=== PATIENT | male | born 1980 | race Caucasian/White ===

== ENCOUNTER → 2017-05-06 12:58 | Outpatient (CLI) | payer BC ==
[~2017-05-06 12:58] MED LIST: LISINOPRIL-HCTZ1 T11 PO
[2017-05-07 12:50] VITALS: BMI 62.6
== END | disposition home or self-care (01) ==
LOC: D.CT 12:58
DX: L03.314 Cellulitis of groin (principal)

== ENCOUNTER 2017-05-07 09:22 | Inpatient (IN) | payer BC ==
[~2017-05-07] VITALS: Ht 170.2 cm; Wt 181.4 kg
[2017-05-07] VITALS (9 sets, daily range): BP systolic 103–141; BP diastolic 53–75; Ht 170.2 cm; Wt 181.4 kg
--- NOTE | 2017-05-07 09:35 | NUR ---
RECIEVED PT TO FLOOR VIA WHEELCHAIR FROM DR. BASILIO OFFICE. PT ORIENTED TO ROOM, ASSESSMENT DONE PER FLOWSHEET. BED IN LOW POSITION AND CALL LIGHT WITHIN REACH. WILL CONTINUE TO MONITOR.
[2017-05-07] MEDS ORDERED: LISINOPRIL-HCTZ1 T11 PO (09:38)
--- NOTE | 2017-05-07 10:20 | NUR ---
22G IV STARTED TO THE RIGHT WRIST AT THIS TIME BY XAVIER NAPOLES RN. PT TOLERATED WELL, BED IN LOW POSITION AND CALL LIGHT WITHIN REACH. WILL CONTINUE TO [facility].
[2017-05-07 11:35] LABS: BASOPHILS 0.1 % (0-2); EOSINOPHILS 0.7 % (0-7); HEMOGLOBIN 12.2 g/dL (13.5-17.5); IMMATURE GRANULOCYTES 0.4 % (0-5); LYMPHOCYTES 10.1 % (15-50); MCH 27.7 pg (26.0-34.0); MCHC 32.1 g/dL (31.0-37.0); MCV 86.2 fL (80.0-100.0); MEAN PLATELET VOLUME 10.3 fL (7.4-10.4); MONOCYTES 8.1 % (2-11); NEUTROPHILS 80.6 % (40-80); PLATELET COUNT 196 10x3/uL (130-400); RBC 4.41 10x6/uL (4.20-6.10); RDW 14.5 % (11.5-14.5)
[2017-05-07 11:59] LABS: ALKALINE PHOSPHATASE 55 U/L (46-116); ALT (SGPT) 28 U/L (10-68); CALC OSMOLALITY 268 mosm/kg (275-300); CALCIUM 8.3 mg/dL (8.5-10.1); CARBON DIOXIDE 27.6 mmol/L (21.0-32.0); CHLORIDE - SERUM 100 mmol/L (98-107); GLUCOSE 115 mg/dL (74-106); POTASSIUM - SERUM 3.7 mmol/L (3.5-5.1); PROTEIN - SERUM 7.3 g/dL (6.4-8.2); SODIUM 135 mmol/L (136-145); UREA NITROGEN 8 mg/dL (7-18); eGFR NON AFRICAN AMERICAN 89 mL/min (90-120)
--- NOTE | 2017-05-07 12:00 | NUR ---
SPOKE WITH DR. VELÁSQUEZ AT THIS TIME, PT NPO UNTIL SEEN BY
--- NOTE | 2017-05-07 12:30 | NUR ---
PT TEMP AT 1210 WAS 102.5, SPOKE WITH DR. VINSON RECIEVED ORDERS FOR CAMPUS PRESIDENT, TYLENOL, AND JIMENEZ PLACEMENT. JIMENEZ PLACED AT THIS TIME USING STERILE TECHNIQUE, ENTIRE CONTENT OF KIT USED. PT TOLERATED WELL, BED IN LOW POSITION AND CALL LIGHT WITHIN REACH. WILL CONTINUE TO MONITOR.
[2017-05-07 13:57] LABS: APPEARANCE CLEAR (CLEAR); BILIRUBIN NEGATIVE (NEGATIVE); COLOR YELLOW (YELLOW); GLUCOSE NEGATIVE (NEGATIVE); KETONE NEGATIVE (NEGATIVE); LEUKOCYTE ESTERASE TRACE (NEGATIVE); NITRITE NEGATIVE (NEGATIVE); PROTEIN NEGATIVE (NEGATIVE); SPECIFIC GRAVITY 1.005 (1.005-1.020); UROBILINOGEN NORMAL (NORMAL)
[2017-05-07 13:58] LABS: BACTERIA FEW /hpf (NONE SEEN); RED CELLS - URINE 0-5 /hpf (0-5); WHITE CELLS - URINE 0-5 /hpf (0-5)
--- NOTE | 2017-05-07 14:07 | NUR ---
TEMP AT 1335 WAS RECORDED AT 101.6, CHECKED IT AT THIS TIME AND IT WAS 100.2. PT IS DIAPHORETIC, WILL CONTINUE TO MONITOR TEMP.
--- NOTE | 2017-05-07 15:15 | NUR ---
PT TAKEN FOR SURGERY AT THIS TIME.
--- NOTE | 2017-05-07 19:20 | NUR ---
REC'D PATIENT SITTING UP IN BED. DENIES PAIN AT THIS TIME. ALERT AND ORIENTED X4. NO DISTRESS NOTED. STATED THAT HIS BED WAS WET FROM HIM SWEATING. CHANGED OUT LINENS AND GOWN FOR HIM WITH ARIELLE KWAN. DENIED FURTHER NEEDS AT THIS TIME. WILL CONT TO MONITOR THROUGHTOUT THE NIGHT. WILL ADMIN PM MEDS PRESCRIBED. BED LOW, LOCKED, CALL LIGHT IN REACH.
[2017-05-08] VITALS: BP 111/55
--- NOTE | 2017-05-08 03:40 | NUR ---
PATIENT IS ALSEEP. NO DISTRESS NOTED. WILL CONT TO MONITOR THROUGHOUT THE NIGHT. BED LOW, LOCKED, CALL LIGHT IN REACH.
[2017-05-08 04:00] VITALS: BP 112/64
[2017-05-08 07:05] LABS: BASOPHILS 0 % (0-2); EOSINOPHILS 0 % (0-7); HEMATOCRIT 37.2 % (42.0-54.0); HEMOGLOBIN 11.9 g/dL (13.5-17.5); IMMATURE GRANULOCYTES 0.4 % (0-5); LYMPHOCYTES 5.7 % (15-50); MCH 27.5 pg (26.0-34.0); MCV 85.9 fL (80.0-100.0); MEAN PLATELET VOLUME 10.1 fL (7.4-10.4); MONOCYTES 4.4 % (2-11); NEUTROPHILS 89.5 % (40-80); PLATELET COUNT 197 10x3/uL (130-400); RBC 4.33 10x6/uL (4.20-6.10); RDW 14.4 % (11.5-14.5); WBC 13.5 10x3/uL (4.8-10.8)
[2017-05-08 07:18] LABS: HEMOGLOBIN A1C 5.7 % (4.8-6.0)
[2017-05-08 07:20] LABS: ALBUMIN 2.6 g/dL (3.4-5.0); ALKALINE PHOSPHATASE 75 U/L (46-116); CALCIUM 8.3 mg/dL (8.5-10.1); CARBON DIOXIDE 25.8 mmol/L (21.0-32.0); CHLORIDE - SERUM 102 mmol/L (98-107); POTASSIUM - SERUM 4.1 mmol/L (3.5-5.1); SODIUM 135 mmol/L (136-145); eGFR NON AFRICAN AMERICAN 89 mL/min (90-120)
[2017-05-08 07:24] LABS: ALT (SGPT) 62 U/L (10-68); CALC OSMOLALITY 273 mosm/kg (275-300); GLUCOSE 174 mg/dL (74-106); UREA NITROGEN 13 mg/dL (7-18)
--- NOTE | 2017-05-08 07:30 | NUR ---
RECIEVED PT DURING WALKING ROUNDS. PT RESTING COMFORTABLY IN BED WITH NO COMPLAINTS AT THIS TIME. DISCUSSED WITH PT THE POC, WILL FOLLOW UP AFTER PT IS SEEN BY . ASSESSMENT DONE PER FLOWSHEET. BED IN LOW POSITION AND CALL LIGHT WITHIN REACH. WILL CONTINUE TO MONTIOR.
--- NOTE | 2017-05-08 07:44 | OP ---
PATIENT NAME: JONATHAN CUEVAS MEDICAL RECORD: [id number] :76 LOCATION:D.MS [facility] ADMISSION DATE:05/07/17 SURGEON: ALVARO VINSON MD DATE OF OPERATION: 05/07/2017 SURGEON: Alvaro Vinson MD PREOPERATIVE DIAGNOSIS: Tatum gangrene. POSTOPERATIVE DIAGNOSIS: Tatum gangrene. PROCEDURE PERFORMED: Incision and drainage of Tatum gangrene in the right scrotum and mons pubis. ANESTHESIA: General. COMPLICATIONS: None. SPECIMENS: Anaerobic culture, aerobic culture, Gram stain and tissue culture. Case was grossly contaminated. ESTIMATED BLOOD LOSS: 30 cc. OPERATIVE COURSE: After consent was obtained, the patient was taken to the operating room and placed in supine position on the operating table. Next, general anesthesia was given via endotracheal intubation after a timeout was taken to confirm the correct patient and procedure. The patient was placed in stirrups. Perineum was prepped and draped in sterile fashion. There was a large opening along the right hemiscrotum with active purulent drainage. There is also a second opening in the midline of the mons pubis with active purulent drainage. An elliptical incision was made along the hemiscrotum approximately 8 cm in length and 2 cm in width. The tissue was excised with the 10 blade scalpel and it was sent for tissue culture. Blunt finger dissection was then performed of the perineum and hemiscrotum as well as the mons pubis. The wound was irrigated with saline and hydrogen peroxide was then packed with Kerlix soaked in Betadine and hydrogen peroxide. The second incision was made in the midline of the mons pubis with a 10 blade scalpel. The skin was opened for approximately 5 cm. Again, a large amount of purulent debris was debrided. After the wounds were opened, anaerobic and aerobic cultures were taken as well as Gram stain. The 2 areas infection did not communicate and there was no easily palpable tract between the two. The second wound was then packed again, it was irrigated with peroxide and saline, was packed with and peroxide with Kerlix. The wounds were dressed with gauze and tape. The patient was transferred to the PACU in stable condition. TRANSINT:[id number] Voice Confirmation ID: [id number] DOCUMENT ID: [id number] OPERATIVE REPORT [id number] JONATHAN CUEVAS JAMES J MD at 0744 CC: [id number] DICTATION DATE: 05/07/17 1611 DELICATE FABRICS PRESSER: 05/08/17 0057 ADM IN [place] [id number] [place] [id number]
--- NOTE | 2017-05-08 07:44 | CN ---
PATIENT NAME:JONATHAN CUEVAS MEDICAL RECORD: [id number] : 76 LOCATION:D.MS [facility] ADMIT DATE: 05/07/17 ACCOUNT: [id number] CONSULTING PHYSICIAN: ALVARO VINSON MD REFERRING PHYSICIAN: MARIA ISABEL BASILIO DO DATE OF CONSULTATION: 05/07/2017 Surgical Consultation SURGEON: Alvaro Vinson M.D. CHIEF COMPLAINT: Right groin pain. HISTORY OF PRESENT ILLNESS: This 36-year-old male who was admitted to the hospital this morning. He was seen by his primary care physician yesterday for acute onset of pain and swelling in the right groin and right hemiscrotum. The patient has had complaints of having high-grade fevers at home greater than 101. No nausea, no vomiting. He has no abdominal pain. No dysuria or hematuria. No history of previous soft tissue cellulitis or abscess in the past. The patient currently rates his pain as 8/10. The pain is in the right groin as well as the right scrotum. PAST MEDICAL HISTORY: Hypertension, venous stasis disease. PAST SURGICAL HISTORY: Left knee replacement, hernia repair, hip surgery, cholecystectomy, tonsillectomy, adenoidectomy. SOCIAL HISTORY: No history of alcohol use. He has no history of tobacco use. FAMILY HISTORY: Cardiovascular disease, cancer and diabetes in his parents. HOME MEDICATIONS: Lisinopril and hydrochlorothiazide. ALLERGIES: PENICILLIN, CEPHALEXIN. REVIEW OF SYSTEMS: A 12-point review of systems is obtained. Pertinent positive and negative as per the HPI. PHYSICAL EXAMINATION: VITAL SIGNS: Temperature 99.3, pulse 75, respirations 20, blood pressure is 141/62, pulse ox 97% on room air. GENERAL: This is a well-developed, well-nourished, morbidly obese male in moderate distress. EYES: Extraocular muscles intact. PSYCHIATRIC: Alert and oriented times 3. EAR, NOSE AND THROAT: Normal dentition. Mucous membranes are dry. CARDIOVASCULAR: Normal sinus rhythm. LUNGS: Clear to auscultation bilaterally, decreased breath sounds. ABDOMEN: Soft, nontender, and nondistended. EXTREMITIES: He is neurovascularly intact with 1+ lower extremity edema. SKIN: The patient has severe erythematous and indurated skin over the right groin and right scrotum. There is an actively draining purulence in the right hemiscrotum. It is markedly tender to palpation. The skin is blanching. It extends towards up to the mons pubis, all the way to the level of the right ASIS. CONSULT REPORT [id number] JONATHAN CUEVAS NEUROLOGIC: He has a GCS of 15 with no focal deficits. LABORATORY DATA: Pending. IMAGING: CT of the abdomen and pelvis images personally reviewed. The patient with abscess with cellulitis in the region of the mons pubis and right hemiscrotum. 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 PLAN: 1. IV fluid resuscitation. 2. Blood cultures. 3. Broad-spectrum IV antibiotics. 4. Whitehead placement. 5. Urology consultation. 6. Emergent incision and drainage Tatum's gangrene of the right hemiscrotum and perineum. Case was discussed with Dr. Gusman, urologist. TRANSINT:[id number] Voice Confirmation ID: [id number] DOCUMENT ID: [id number] ALVARO VINSON MD at 0744 CC: [id number] DICTATION DATE: 05/07/17 1218 EMPLOYEE BENEFITS INSURANCE AGENT: 05/07/17 2152 ADM IN [facility] [address] [place] [address]
--- NOTE | 2017-05-08 08:48 | NUR ---
DR. VISNON SAW PT AT THIS TIME AND REMOVED OUTER DRESSING FROM SURGICAL SITE, STATED HE WANTED THE PACKING TO STAY IN UNTIL TOMORROW. WILL CHANGE DRESSING PER ORDER.
[2017-05-08 09:01] VITALS: BP 115/55
[2017-05-08 13:02] VITALS: BP 100/46
--- NOTE | 2017-05-08 15:15 | NUR ---
LYING IN BED,FAMILY TO VISIT.DENIES NEEDS.CONTACT ISOLATION MAINTAINED
[2017-05-08 17:12] VITALS: BP 113/65
--- NOTE | 2017-05-08 17:24 | NUR ---
DENIES NEEDS.WITHOUT CHANGE.CONT PLAN OF CARE
[2017-05-08 20:00] VITALS: BP 127/66
[2017-05-09] VITALS: BP 126/62
[2017-05-09 04:00] VITALS: BP 122/57
[2017-05-09 05:19] LABS: BASOPHILS 0.2 % (0-2); EOSINOPHILS 0.3 % (0-7); HEMATOCRIT 33.7 % (42.0-54.0); HEMOGLOBIN 10.8 g/dL (13.5-17.5); IMMATURE GRANULOCYTES 0.3 % (0-5); LYMPHOCYTES 14.7 % (15-50); MCH 27.3 pg (26.0-34.0); MCV 85.3 fL (80.0-100.0); MEAN PLATELET VOLUME 10.6 fL (7.4-10.4); MONOCYTES 7.2 % (2-11); NEUTROPHILS 77.3 % (40-80); PLATELET COUNT 224 10x3/uL (130-400); RBC 3.95 10x6/uL (4.20-6.10); RDW 14.3 % (11.5-14.5); WBC 11.7 10x3/uL (4.8-10.8)
[2017-05-09 05:37] LABS: ALBUMIN 2.3 g/dL (3.4-5.0); ALKALINE PHOSPHATASE 62 U/L (46-116); ALT (SGPT) 51 U/L (10-68); BILIRUBIN - TOTAL 0.23 mg/dL (0.2-1.3); CALC OSMOLALITY 280 mosm/kg (275-300); CALCIUM 8.2 mg/dL (8.5-10.1); CARBON DIOXIDE 25.9 mmol/L (21.0-32.0); CHLORIDE - SERUM 106 mmol/L (98-107); CREATININE - SERUM 0.9 mg/dL (0.6-1.3); GLUCOSE 136 mg/dL (74-106); POTASSIUM - SERUM 3.9 mmol/L (3.5-5.1); PROTEIN - SERUM 6.4 g/dL (6.4-8.2); SODIUM 139 mmol/L (136-145); UREA NITROGEN 14 mg/dL (7-18); VANCOMYCIN - TROUGH 11.3 ug/mL (10.0-20.0); eGFR NON AFRICAN AMERICAN > 90 mL/min (90-120)
[2017-05-09 08:31] VITALS: BP 119/67
[2017-05-09 12:14] VITALS: BP 126/80
[2017-05-09 16:28] VITALS: BP 102/60
--- NOTE | 2017-05-09 17:20 | NUR ---
PATIENT ALERT IN BED. NO SIGNS OF DISTRESS NOTED. GUEST AT BEDSIDE. SIDE RAILS UP X2. BED IN LOW POSITION. CALL LIGHT IN REACH.
--- NOTE | 2017-05-09 19:30 | NUR ---
REC'D SITTING IN CHAIR IN ROOM. AWAKE AND ALERT. RESP EVEN AND UNLABORED WITH NO DISTRESS NOTED. CAN EXPRESS NEEDS AND WANTS. NO C/O NOTED OR VOICED. ASSESSMENT COMPLETED. C/L IN REACH AT BEDSIDE.
[2017-05-09 20:00] VITALS: BP 135/68
--- NOTE | 2017-05-10 02:00 | NUR ---
PT IN BED WITH NO DISTRESS. RESPIRATIONS EVEN AND UNLABORED. SIDE RAILS X 2. BED LOW. CALL LIGHT IN REACH.
[2017-05-10 04:00] VITALS: BP 124/74
[2017-05-10 05:05] LABS: BASOPHILS 0.1 % (0-2); EOSINOPHILS 2.3 % (0-7); HEMATOCRIT 33.4 % (42.0-54.0); HEMOGLOBIN 10.8 g/dL (13.5-17.5); IMMATURE GRANULOCYTES 0.6 % (0-5); LYMPHOCYTES 31.8 % (15-50); MCHC 32.3 g/dL (31.0-37.0); MCV 86.5 fL (80.0-100.0); MEAN PLATELET VOLUME 9.8 fL (7.4-10.4); MONOCYTES 7.6 % (2-11); NEUTROPHILS 57.6 % (40-80); PLATELET COUNT 201 10x3/uL (130-400); RBC 3.86 10x6/uL (4.20-6.10); RDW 14.8 % (11.5-14.5); WBC 7.8 10x3/uL (4.8-10.8)
[2017-05-10 05:31] LABS: ALBUMIN 2.4 g/dL (3.4-5.0); ALKALINE PHOSPHATASE 94 U/L (46-116); BILIRUBIN - TOTAL 0.25 mg/dL (0.2-1.3); CALC OSMOLALITY 283 mosm/kg (275-300); CALCIUM 7.9 mg/dL (8.5-10.1); CARBON DIOXIDE 27.2 mmol/L (21.0-32.0); CHLORIDE - SERUM 107 mmol/L (98-107); CREATININE - SERUM 0.8 mg/dL (0.6-1.3); GLUCOSE 98 mg/dL (74-106); POTASSIUM - SERUM 4.4 mmol/L (3.5-5.1); PROTEIN - SERUM 5.6 g/dL (6.4-8.2); SODIUM 142 mmol/L (136-145); UREA NITROGEN 14 mg/dL (7-18); eGFR NON AFRICAN AMERICAN > 90 mL/min (90-120)
[2017-05-10 05:32] LABS: ALT (SGPT) 72 U/L (10-68)
[2017-05-10 08:49] VITALS: BP 124/81
--- NOTE | 2017-05-10 09:48 | NUR ---
Patient Name: JONATHAN CUEVAS Admission Status: Elective Accout number: [id number] Admission Date: 05-07-2017 : 1980 Admission Diagnosis: Attending: SOWMYA Current LOS: 3 Anticipated DC Date: 05-13-2017 Planned Disposition: Home with Home Health Primary Insurance: [employer] TRUE BLUE PPO Discharge Planning Comments: CM MET WITH PATIENT REGARDING D/C NEEDS AND PLANS. PATIENT STATED HE LIVES WITH HIS (GABINO) AND CHILDREN. PATIENT STATED HIS WILL DRIVE HIM HOME AT DISCHARGE. PATIENT STATED THERE ARE 6 STEPS WITH RAILS TO ENTER HOME AND NO STEPS INSIDE. PATIENT STATED HE IS INDEPENDENT WITH HIS CARE AND HAS A BS COMMODE AT HOME AND HAS A BUILT IN SHOWER CHAIR. PATIENTS PCP IS DR. BASILIO AND PHARMACY IS [facility] AT [facility]. PATIENT SIGNED THE JORDAN FORM WITH [facility] (HAS HAD THEM BEFORE). CM WILL CONTINUE TO FOLLOW PATIENT WITH D/C NEEDS AND PLANS. PCP DR. [facility] [phone] GABINO () [phone] Spray Machine Operator: Gabby Bee Is the patient Alert and Oriented? Yes 0 * How many steps to enter\exit or inside your home? 6W/RAILS 0 * PCP DR. BASILIO 0 * Pharmacy [facility] 0 * Preadmission Environment Home with Family 0 * ADLs Independent 0 * Equipment Bedside Commode 0 * Other Equipment BUILT IN SHOWER CHAIR 0 * List name and contact numbers for known caregivers / representatives who currently or will assist patient after discharge: GABINO () [phone] * Community resources currently utilized None 0 * Additional services required to return to the preadmission environment? Yes 0 * Can the patient safely return to the preadmission environment? Yes 0 * Has this patient been hospitalized within the prior 30 days at any hospital? No 0 Grand Total: 0
[2017-05-10 12:05] VITALS: BP 139/77
[2017-05-10 15:57] VITALS: BP 107/58
[2017-05-10] MEDS ORDERED: CLEOCIN HCL150 MG PO (18:19)
[2017-05-10] MEDS ORDERED: NORCO 7.5/325 T1 TA1 PO (18:20)
[2017-05-10 20:03] VITALS: BP 126/60
--- NOTE | 2017-05-10 22:40 | NUR ---
REC'D PATIENT SITTING UP IN CHAIR. ALERT AND ORIENTED X4. REPORTED PAIN 4/10. NO DISTRESS NOTED. DENIED FURTHER NEEDS AT THIS TIME. WILL ADMIN PM MEDS PRESCRIBED. WILL CONT TO MONITOR THROUGHOUT NIGHT. INSTRUCTED TO CALL IF NEEDED ANYTHING, BED LOW, LOCKED CALL LIGHT IN REACH.
--- NOTE | 2017-05-11 02:00 | NUR ---
PT IN BED WITH NO DISTRESS. RESPIRATIONS EVEN AND UNLABORED. SIDE RAILS X 2. BED LOW. CALL LIGHT IN REACH.
--- NOTE | 2017-05-11 03:21 | NUR ---
PATIENT IS RESTING IN BED. NO DISTRESS NOTED. INSTRUCTED TO CALL IF NEEDED ANYTHING. INSTRUCTED TO CALL IF NEEDED ANYTHING. BED LOW, LOCKED CALL LIGHT IN REACH.
[2017-05-11 04:00] VITALS: BP 130/60
[2017-05-11 04:38] LABS: BASOPHILS 0.2 % (0-2); EOSINOPHILS 4.2 % (0-7); HEMATOCRIT 34.4 % (42.0-54.0); IMMATURE GRANULOCYTES 1.2 % (0-5); LYMPHOCYTES 24.2 % (15-50); MCH 27.5 pg (26.0-34.0); MEAN PLATELET VOLUME 9.7 fL (7.4-10.4); MONOCYTES 7.9 % (2-11); NEUTROPHILS 62.3 % (40-80); PLATELET COUNT 248 10x3/uL (130-400); RDW 14.8 % (11.5-14.5); WBC 9.8 10x3/uL (4.8-10.8)
[2017-05-11 04:54] LABS: ALBUMIN 2.5 g/dL (3.4-5.0); ALKALINE PHOSPHATASE 110 U/L (46-116); ALT (SGPT) 76 U/L (10-68); BILIRUBIN - TOTAL 0.33 mg/dL (0.2-1.3); CALC OSMOLALITY 281 mosm/kg (275-300); CALCIUM 8.4 mg/dL (8.5-10.1); CARBON DIOXIDE 29.1 mmol/L (21.0-32.0); CHLORIDE - SERUM 105 mmol/L (98-107); CREATININE - SERUM 0.7 mg/dL (0.6-1.3); GLUCOSE 107 mg/dL (74-106); POTASSIUM - SERUM 4.4 mmol/L (3.5-5.1); PROTEIN - SERUM 5.7 g/dL (6.4-8.2); SODIUM 142 mmol/L (136-145); eGFR NON AFRICAN AMERICAN > 90 mL/min (90-120)
[2017-05-11 04:55] LABS: UREA NITROGEN 10 mg/dL (7-18)
[2017-05-11 08:25] VITALS: BP 129/73
[2017-05-11] MEDS ORDERED: ATIVAN1 MG PO (09:06)
--- NOTE | 2017-05-11 09:06 | NUR ---
CM REASSESSMENT NOTE: PATIENT IS DISCHARGING HOME TODAY-SON IS DRIVING. PATIENT WILL HAVE [facility] FOR DAILY DRESSING CHANGES. PATIENT HAD NO OTHER NEEDS FOR DISCHARGE.
--- NOTE | 2017-05-11 09:15 | NUR ---
PT AOX4 RESP EVEN AND NONLABORED PT HERE FOR WOUND CARE FOR THIS VISIT IV TO LEFT FOREARM PATENT AND INTACT PT DENIES NEEDS AT THIS TIME PT SITTING IN CHAIR WITH CALL LIGHT WITHIN REACH WILL CONTINUE TO MONITOR
[2017-05-11 11:15] LABS: APPEARANCE CLOUDY (CLEAR); BILIRUBIN NEGATIVE (NEGATIVE); COLOR YELLOW (YELLOW); GLUCOSE NEGATIVE (NEGATIVE); KETONE NEGATIVE (NEGATIVE); LEUKOCYTE ESTERASE NEGATIVE (NEGATIVE); NITRITE NEGATIVE (NEGATIVE); PROTEIN NEGATIVE (NEGATIVE); SPECIFIC GRAVITY 1.005 (1.005-1.020); UROBILINOGEN NORMAL (NORMAL)
[2017-05-11 11:18] LABS: BACTERIA FEW /hpf (NONE SEEN); EPITHELIAL CELLS OCC /hpf (0-5); RED CELLS - URINE >50 /hpf (0-5); WHITE CELLS - URINE OCC /hpf (0-5)
--- NOTE | 2017-05-11 11:30 | NUR ---
PT DRESSING CHANGED PER ORDER PACKING NOTED TO RIGHT SIDE SCROTUM REMOVED AND REPLACED PER ORDER PT TOLERATED WELL WITH ATIVAN AND PAIN MEDS ON BOARD.
[2017-05-11] MEDS ORDERED: LASIX40 MG PO (12:52)
--- NOTE | 2017-05-11 13:30 | NUR ---
ORDERED LASIX CALLED TO [facility]. JENIFER, PHARMACIST RECEIVED ORDER.
--- NOTE | 2017-05-11 17:07 | NUR ---
PT DISCHARGED PER ORDER WITH FAMILY AT SIDE.
== END 2017-05-11 17:08 | disposition home health service (06) | DRG 580 ==
LOC: D.MS 09:22
PROVIDERS: Student in an Organized Health Care Education/Training Program; ADMIT Family Medicine
PROC: 0H99XZZ Drainage of Perineum Skin, External Approach (ICD-10-PCS; 2017-05-07)
PROC: 0H9AXZZ Drainage of Inguinal Skin, External Approach (ICD-10-PCS; 2017-05-07)
PROC: 0T9B70Z Drainage of Bladder with Drainage Device, Via Natural or Artificial Opening (ICD-10-PCS; principal; 2017-05-08)
DX: L03.314 Cellulitis of groin (principal); Z68.44 Body mass index [BMI] 60.0-69.9, adult; N49.3 Fournier gangrene; B95.62 Methicillin resistant Staphylococcus aureus infection as the cause of diseases classified elsewhere; E66.01 Morbid (severe) obesity due to excess calories; I10 Essential (primary) hypertension; Z88.1 Allergy status to other antibiotic agents; I83.028 Varicose veins of left lower extremity with ulcer other part of lower leg

== ENCOUNTER → 2018-05-07 21:14 | Outpatient (CLI) | payer BC ==
[2017-05-07 12:50] VITALS: BMI 62.6
[~2018-05-07 21:14] MED LIST changes: +ATIVAN1 MG PO; +CLEOCIN HCL150 MG PO; +LASIX40 MG PO; +NORCO 7.5/325 T1 TA1 PO
== END | disposition home or self-care (01) ==
LOC: D.LABREF 21:14
DX: T14.8XXA Other injury of unspecified body region, initial encounter (principal); X58.XXXA Exposure to other specified factors, initial encounter

== ENCOUNTER 2018-09-08 14:33 | Inpatient (IN) | payer BC ==
[~2018-09-08] VITALS: Ht 170.2 cm; Wt 185.5 kg
--- NOTE | ~2018-09-08 | MORECARE ---
CASE MANAGEMENT DISCHARGE SUMMARY PATIENT: JONATHAN CUEVAS LIZBETH UNIT: [id number] ADM DATE: 09/08/18 AGE: 37 : 78 SEX: M ROOM/BED: D.2132 AUTHOR: QIAN OLSON PHYSICIAN: REFERRING PHYSICIAN: MARIA ISABEL BASILIO DO DATE OF SERVICE: 09/12/18 Discharge Plan Patient Name: JONATHAN CUEVAS [facility] [facility] 1980 Planned Disposition: Home Anticipated Discharge Date: 09/10/18 Discharge Date: 09/10/2018 Expected LOS: 2 Initial Reviewer: [email or web address] Initial Review Date: 09/12/2018 Generated: 09/12/18 9:58 am Patient Name: JONATHAN CUEVAS Page [id number] at 0858 All edits/amendments must be made on the electronic document DICTATION DATE: 09/12/1858 CHILDREN'S NURSERY ASSISTANT: DORA 09/12/1858 RPT#: [id number] DC DATE:09/10/18 STATUS: DIS IN [facility] [address] [facility] [place] [address] END OF REPORT
[2018-09-08] MEDS ORDERED: HYDROCODON-ACE1 EAC7 PO (15:25)
[2018-09-08] MEDS ORDERED: ALDACTONE25 MG PO (15:28)
[2018-09-08] MEDS ORDERED: ENTRESTO 97 MG1 EACH PO (15:28)
[2018-09-08] MEDS ORDERED: COUMADIN10 MG PO ×2 (15:29→15:30)
[2018-09-08 15:30] LABS: BASOPHILS 0.1 % (0-2); EOSINOPHILS 2.2 % (0-7); HEMATOCRIT 37.2 % (42.0-54.0); HEMOGLOBIN 12.5 g/dL (13.5-17.5); IMMATURE GRANULOCYTES 0.3 % (0-5); LYMPHOCYTES 36.1 % (15-50); MCH 26.7 pg (26.0-34.0); MCHC 33.6 g/dL (31.0-37.0); MCV 79.5 fL (80.0-100.0); MEAN PLATELET VOLUME 10.5 fL (7.4-10.4); MONOCYTES 5.1 % (2-11); NEUTROPHILS 56.2 % (40-80); PLATELET COUNT 225 10x3/uL (130-400); RBC 4.68 10x6/uL (4.20-6.10); RDW 15.4 % (11.5-14.5); WBC 8.8 10x3/uL (4.8-10.8)
[2018-09-08] MEDS ORDERED: METOPROLOL TART50 MG PO (15:31)
[2018-09-08] MEDS ORDERED: BUMEX2 MG PO (15:31)
[2018-09-08] MEDS ORDERED: LANOXIN125 MCG PO (15:32)
[2018-09-08] MEDS ORDERED: BASAGLAR K100 UNIT/1 SC (15:40)
[2018-09-08 15:47] VITALS: BP 130/59; BMI 64.2
[2018-09-08 16:07] LABS: ALBUMIN 3.5 g/dL (3.4-5.0); ALKALINE PHOSPHATASE 91 U/L (46-116); ALT (SGPT) 36 U/L (10-68); BILIRUBIN - TOTAL 0.41 mg/dL (0.2-1.3); CALCIUM 9.1 mg/dL (8.5-10.1); CARBON DIOXIDE 28.4 mmol/L (21.0-32.0); CHLORIDE - SERUM 93 mmol/L (98-107); CREATININE - SERUM 1.1 mg/dL (0.6-1.3); POTASSIUM - SERUM 3.9 mmol/L (3.5-5.1); PROTEIN - SERUM 6.8 g/dL (6.4-8.2); SODIUM 130 mmol/L (136-145); UREA NITROGEN 18 mg/dL (7-18); eGFR NON AFRICAN AMERICAN 79 mL/min (90-120)
[2018-09-08 16:17] VITALS: BP 130/59
[2018-09-08 16:17] LABS: CALC OSMOLALITY 287 mosm/kg (275-300); GLUCOSE 541 mg/dL (74-106)
[2018-09-08 22:25] VITALS: BP 120/59
[2018-09-09 02:17] VITALS: BP 120/58
[2018-09-09 04:38] LABS: APPEARANCE CLEAR (CLEAR); COLOR YELLOW (YELLOW)
[2018-09-09 04:39] LABS: BILIRUBIN NEGATIVE (NEGATIVE); GLUCOSE 1000 mg/dL (NEGATIVE); KETONE NEGATIVE (NEGATIVE); NITRITE NEGATIVE (NEGATIVE); PROTEIN NEGATIVE (NEGATIVE); UROBILINOGEN NORMAL (NORMAL)
[2018-09-09 05:59] VITALS: BP 107/50
[2018-09-09 06:10] LABS: BASOPHILS 0.2 % (0-2); EOSINOPHILS 2.8 % (0-7); HEMOGLOBIN 12.2 g/dL (13.5-17.5); IMMATURE GRANULOCYTES 0.5 % (0-5); MCH 26.5 pg (26.0-34.0); MCV 80.3 fL (80.0-100.0); MEAN PLATELET VOLUME 10.7 fL (7.4-10.4); MONOCYTES 4.9 % (2-11); NEUTROPHILS 62.6 % (40-80); PLATELET COUNT 186 10x3/uL (130-400); RBC 4.61 10x6/uL (4.20-6.10); RDW 15.5 % (11.5-14.5)
[2018-09-09 06:23] LABS: WBC 6.4 10x3/uL (4.8-10.8)
[2018-09-09 06:27] LABS: ALKALINE PHOSPHATASE 75 U/L (46-116); ALT (SGPT) 77 U/L (10-68); BILIRUBIN - TOTAL 0.56 mg/dL (0.2-1.3); CALC OSMOLALITY 282 mosm/kg (275-300); CALCIUM 8.8 mg/dL (8.5-10.1); CARBON DIOXIDE 28.8 mmol/L (21.0-32.0); CHLORIDE - SERUM 98 mmol/L (98-107); CREATININE - SERUM 0.8 mg/dL (0.6-1.3); GLUCOSE 339 mg/dL (74-106); POTASSIUM - SERUM 3.8 mmol/L (3.5-5.1); PROTEIN - SERUM 6.6 g/dL (6.4-8.2); SODIUM 135 mmol/L (136-145); UREA NITROGEN 13 mg/dL (7-18); eGFR NON AFRICAN AMERICAN > 90 mL/min (90-120)
[2018-09-09 08:14] VITALS: BP 132/58
[2018-09-09 10:40] LABS: INR 2.4 (0.85-1.17); PROTIME 25.5 SECONDS (11.6-15.0)
[2018-09-09 12:06] VITALS: BP 126/78
[2018-09-09 14:19] VITALS: Ht 170.2 cm; Wt 185.5 kg
[2018-09-09 16:03] VITALS: BP 123/53
[2018-09-09 21:58] VITALS: BP 104/40
[2018-09-10 01:06] VITALS: BP 103/40
[2018-09-10 04:00] VITALS: BP 129/67
[2018-09-10 05:10] LABS: BASOPHILS 0.1 % (0-2); EOSINOPHILS 3.6 % (0-7); HEMATOCRIT 37.9 % (42.0-54.0); HEMOGLOBIN 12.7 g/dL (13.5-17.5); IMMATURE GRANULOCYTES 0.3 % (0-5); LYMPHOCYTES 33.6 % (15-50); MCHC 33.5 g/dL (31.0-37.0); MCV 80.6 fL (80.0-100.0); MONOCYTES 6.1 % (2-11); NEUTROPHILS 56.3 % (40-80); PLATELET COUNT 200 10x3/uL (130-400); RDW 15.5 % (11.5-14.5); WBC 7.2 10x3/uL (4.8-10.8)
[2018-09-10 05:28] LABS: ALKALINE PHOSPHATASE 81 U/L (46-116); BILIRUBIN - TOTAL 0.65 mg/dL (0.2-1.3); CALCIUM 8.8 mg/dL (8.5-10.1); CARBON DIOXIDE 30.1 mmol/L (21.0-32.0); CHLORIDE - SERUM 100 mmol/L (98-107); CREATININE - SERUM 0.8 mg/dL (0.6-1.3); PROTEIN - SERUM 6.7 g/dL (6.4-8.2); SODIUM 137 mmol/L (136-145); UREA NITROGEN 10 mg/dL (7-18); eGFR NON AFRICAN AMERICAN > 90 mL/min (90-120)
[2018-09-10 05:29] LABS: ALT (SGPT) 130 U/L (10-68); CALC OSMOLALITY 278 mosm/kg (275-300); GLUCOSE 201 mg/dL (74-106); POTASSIUM - SERUM 3.1 mmol/L (3.5-5.1)
[2018-09-10 08:00] VITALS: BP 127/68
[2018-09-10] MEDS ORDERED: BASAGLAR K100 UNIT/1 SC (10:08)
[2018-09-10] MEDS ORDERED: NORCO 10-325 TA1 TAB PO (10:11)
[2018-09-10] MEDS ORDERED: HUMALOG 30100 UNITS/ SC (10:11)
[2018-09-10 12:52] VITALS: BP 119/63
== END 2018-09-10 16:13 | disposition home or self-care (01) | DRG 638 ==
LOC: D.SDCHOLD 14:33 → D.M2 14:33
PROVIDERS: Family Medicine
DX: E11.65 Type 2 diabetes mellitus with hyperglycemia (principal); Z68.44 Body mass index [BMI] 60.0-69.9, adult; I11.0 Hypertensive heart disease with heart failure; I50.9 Heart failure, unspecified; E66.01 Morbid (severe) obesity due to excess calories; Z95.2 Presence of prosthetic heart valve; Z87.891 Personal history of nicotine dependence

== ENCOUNTER 2018-12-27 06:20 | Day surgery (SDC) | payer BC ==
[2018-12-26 09:33] LABS: BASOPHILS 0.1 % (0-2); CALC OSMOLALITY 284 mosm/kg (275-300); CALCIUM 8.7 mg/dL (8.5-10.1); CHLORIDE - SERUM 101 mmol/L (98-107); CREATININE - SERUM 0.8 mg/dL (0.6-1.3); EOSINOPHILS 1.4 % (0-7); GLUCOSE 215 mg/dL (74-106); HEMATOCRIT 41.2 % (42.0-54.0); HEMOGLOBIN 13.8 g/dL (13.5-17.5); IMMATURE GRANULOCYTES 0.5 % (0-5); MCHC 33.5 g/dL (31.0-37.0); MCV 83.6 fL (80.0-100.0); MEAN PLATELET VOLUME 10.5 fL (7.4-10.4); MONOCYTES 5.8 % (2-11); NEUTROPHILS 67.2 % (40-80); POTASSIUM - SERUM 3.5 mmol/L (3.5-5.1); RBC 4.93 10x6/uL (4.20-6.10); RDW 13.9 % (11.5-14.5); SODIUM 141 mmol/L (136-145); UREA NITROGEN 8 mg/dL (7-18); WBC 10.3 10x3/uL (4.8-10.8); eGFR NON AFRICAN AMERICAN > 90 mL/min (90-120)
[2018-12-26 09:43] LABS: APTT 59.8 SECONDS (22.8-39.4); INR 2.19 (0.85-1.17); PROTIME 23.7 SECONDS (11.6-15.0)
[2018-12-26 10:20] LABS: PLATELET COUNT 254 10x3/uL (130-400)
[~2018-12-27] VITALS: Ht 170.2 cm; Wt 173.3 kg
[~2018-12-27 06:20] MED LIST changes: +ALDACTONE25 MG PO; +BASAGLAR K100 UNIT/1 SC; +BUMEX2 MG PO; +COUMADIN10 MG PO; +ENTRESTO 97 MG1 EACH PO; +HUMALOG 30100 UNITS/ SC; +HYDROCODON-ACE1 EAC7 PO; +LANOXIN125 MCG PO; +METOPROLOL TART50 MG PO; +NORCO 10-325 TA1 TAB PO
[2018-12-27 06:42] VITALS: BP 119/50; Ht 170.2 cm; Wt 173.3 kg
--- NOTE | 2018-12-27 14:42 | OP ---
PATIENT NAME: JONATHAN CUEVAS MEDICAL RECORD: [id number] :[birth year] LOCATION:JAVI ADMISSION DATE: SURGEON: LIZBETH VELÁSQUEZ MD DATE OF OPERATION: 12/27/2018 SURGEON: Lizbeth Velásquez MD ANESTHESIA: General anesthesia by Mumtaz De Dios CRNA DIAGNOSIS: Buried penis. PROCEDURE: Examination under anesthesia. FINDINGS: The patient had previous adequate circumcision. Buried penis. BLOOD LOSS: None. CLINICAL HISTORY: This is a 38-year-old male with a history of diabetes mellitus type 2 since August of 2018. He was complaining of recurrent infections of the head of the penis. He was referred by Dr. Nam. He had had a circumcision in childhood, but a lot of the foreskin he claims was left behind. He was complaining of difficulty with pain in the glans penis and tears in the foreskin. He felt that there was a tight band which was making it hard to pull the foreskin back in order to expose the glans penis. He was started on antibiotics and antifungals to treat the infection. Besides the diabetes, he has had cancer of the right kidney, treated with cryotherapy. He also had an aortic valve replacement in March of 2018. He was born with a bicuspid aortic valve. He currently has a mechanical heart valve and he is on warfarin. His web applications programmer allowed us to hold his warfarin for 3 days prior to the surgery. He wanted to have an elective circumcision done today. HE IS ALLERGIC TO PENICILLIN AND CEPHALEXIN. He was given Levaquin IV on-call to the OR. DESCRIPTION OF PROCEDURE: The patient was given induction of general anesthesia. He was then shaved and prepped in supine position. The patient is morbidly obese and he has a very large abdominal pannus, which buries the penis. When we finally uncovered the penis and I put a 2-0 nylon suture through the glans penis and put it under direct traction to obtain full erectile length, it was found that the circumcised skin was actually adequate for full penile erection. There was no redundant skin left to be excised. If we cut more skin off, then he would have a tethered erection. At this point, it was decided to abandon the procedure. The suture was removed from the glans penis, and with a little bit of manual pressure, the bleeding from the needle stick stopped. The patient was awakened and brought to the recovery room. TRANSINT:[id number] Voice Confirmation ID: [id number] DOCUMENT ID: [id number] LIZBETH VELÁSUQEZ MD at 1442 CC: [id number] DICTATION DATE: 12/27/18 1016 TRAFFIC ENUMERATOR: 12/27/18 1105 [facility] [address] [place] [address]
== END 2018-12-27 12:15 | disposition home or self-care (01) ==
LOC: D.OPS 06:20
PROVIDERS: Anesthesiology
DX: N48.83 Acquired buried penis (principal); E11.9 Type 2 diabetes mellitus without complications; Z79.01 Long term (current) use of anticoagulants; Z95.2 Presence of prosthetic heart valve; Z88.1 Allergy status to other antibiotic agents; Z88.0 Allergy status to penicillin; E66.01 Morbid (severe) obesity due to excess calories; Z01.812 Encounter for preprocedural laboratory examination

== ENCOUNTER 2019-09-28 18:32 | Observation (INO) | payer BC ==
[2019-09-28] VITALS (9 sets, daily range): BP systolic 106–127; BP diastolic 45–70; BMI 573.5
[~2019-09-28] VITALS: Ht 170.2 cm; Wt 1659.5 kg
[2019-09-28 19:07] LABS: BASOPHILS 0 % (0-2); EOSINOPHILS 1.1 % (0-7); HEMATOCRIT 36.4 % (42.0-54.0); HEMOGLOBIN 11.9 g/dL (13.5-17.5); IMMATURE GRANULOCYTES 0.4 % (0-5); MCH 28.3 pg (26.0-34.0); MCHC 32.7 g/dL (31.0-37.0); MCV 86.7 fL (80.0-100.0); MEAN PLATELET VOLUME 9.3 fL (7.4-10.4); MONOCYTES 7.6 % (2-11); NEUTROPHILS 61.9 % (40-80); PLATELET COUNT 209 10x3/uL (130-400); RDW 14.3 % (11.5-14.5); WBC 4.7 10x3/uL (4.8-10.8)
[2019-09-28 19:14] LABS: CALC OSMOLALITY 275 mosm/kg (275-300); CALCIUM 8.1 mg/dL (8.5-10.1); CARBON DIOXIDE 27.8 mmol/L (21.0-32.0); CHLORIDE - SERUM 100 mmol/L (98-107); GLUCOSE 192 mg/dL (74-106); SODIUM 136 mmol/L (136-145); UREA NITROGEN 9 mg/dL (7-18); eGFR NON AFRICAN AMERICAN 88 mL/min (90-120)
[2019-09-28 19:15] LABS: INR 1.41 (0.85-1.17); PROTIME 16.7 SECONDS (11.6-15.0)
[2019-09-28 19:16] LABS: APTT 45.8 SECONDS (22.8-39.4)
--- NOTE | 2019-09-28 19:22 | NUR ---
PT RECIEVED ONE SL NITRO WITH NO PAIN RELIEF.
--- NOTE | 2019-09-28 19:28 | NUR ---
PT RECIEVED SECOND SL NITRO WITH NO RELIEF. EDP OSORIO AND NINFA NOTIFIED. OTHER ORDERS ENTERED BY PHYSICIAN.
[2019-09-28 19:34] LABS: ALBUMIN 2.9 g/dL (3.4-5.0); ALKALINE PHOSPHATASE 71 U/L (46-116); ALT (SGPT) 30 U/L (10-68); BILIRUBIN - TOTAL 0.52 mg/dL (0.2-1.3); CKMB 0.3 U/L (0.0-3.6); CREATINE KINASE 368 UL (21-232); MAGNESIUM - SERUM 1.5 mg/dL (1.8-2.4); TROPONIN-I < 0.017 ng/mL (0.000-0.060)
--- NOTE | 2019-09-28 20:50 | NUR ---
PT DIAPHORETIC. EDP NINFA AND OSORIO NOTIFIED. PT PROVIDED WITH WET WASHCLOTHS AND BED LINENS CHANGED. PT DENIES FURTHER REQUESTS AT THIS TIME. WILL CONTINUE TO MONITOR.
--- NOTE | 2019-09-28 21:30 | NUR ---
FORMULA ROOM WORKER FROM [employer] HERE TO INTERROGATE PACEMAKER.
--- NOTE | 2019-09-28 22:15 | NUR ---
PT IN BED RESTING AT THIS TIME. PT HAS NO COMPLAINTS AT THIS TIME. WILL CONTINUE TO MONITOR.
[2019-09-28 22:32] LABS: CKMB 0.3 U/L (0.0-3.6); CREATINE KINASE 352 UL (21-232)
[2019-09-28 22:36] LABS: TROPONIN-I < 0.017 ng/mL (0.000-0.060)
--- NOTE | 2019-09-29 00:45 | NUR ---
RECIEVED REPORT FROM MIKE SO, PT ARRIVED BY WHEELCHAIR. INITIAL VSS, PT AAOX3, NO S/S OF DISTRESS. PT. C/O OF PAIN IV 4MG MORPHINE GIVEN AT THIS TIME. PT PLACED ON TELE. 78 PACED. PT ALSO PLACED ON NPO PER PROVIDERS ORDER. PT DENIES ANY FURTHER NEEDS AT THIS TIME. WILL CPOC.
[2019-09-29 04:00] VITALS: BP 103/56
[2019-09-29 05:26] LABS: HEMATOCRIT 35.9 % (42.0-54.0); HEMOGLOBIN 11.7 g/dL (13.5-17.5); MCH 28.5 pg (26.0-34.0); MCHC 32.6 g/dL (31.0-37.0); MCV 87.3 fL (80.0-100.0); MEAN PLATELET VOLUME 10.2 fL (7.4-10.4); PLATELET COUNT 209 10x3/uL (130-400); RBC 4.11 10x6/uL (4.20-6.10); RDW 14.4 % (11.5-14.5); WBC 3.7 10x3/uL (4.8-10.8)
--- NOTE | 2019-09-29 06:07 | NUR ---
ASSESSMENT DONE. DENIES NEEDS
[2019-09-29 06:16] LABS: EOSINOPHILS 3 % (0-7); LYMPHOCYTES 37 % (15-50); MONOCYTES 10 % (2-11); NEUTROPHILS 38 % (40-80)
[2019-09-29 06:17] LABS: PLATELET ESTIMATE NORMAL
[2019-09-29 06:32] LABS: CARBON DIOXIDE 29.4 mmol/L (21.0-32.0); CHLORIDE - SERUM 103 mmol/L (98-107); CKMB 0.5 U/L (0.0-3.6); CREATINE KINASE 332 UL (21-232); POTASSIUM - SERUM 3.3 mmol/L (3.5-5.1); SODIUM 138 mmol/L (136-145); TROPONIN-I < 0.017 ng/mL (0.000-0.060); UREA NITROGEN 8 mg/dL (7-18)
[2019-09-29 06:45] LABS: CALC OSMOLALITY 275 mosm/kg (275-300); CREATININE - SERUM 0.6 mg/dL (0.6-1.3); GLUCOSE 136 mg/dL (74-106); eGFR NON AFRICAN AMERICAN > 90 mL/min (90-120)
[2019-09-29 07:29] VITALS: BP 115/44
--- NOTE | 2019-09-29 08:08 | NUR ---
I have reviewed this patient and I concur with the Shift Assessment completed by the Licensed Practical Nurse today this shift.
[2019-09-29 09:42] VITALS: Ht 170.2 cm; Wt 1659.5 kg
--- NOTE | 2019-09-29 10:43 | NUR ---
UPON ADMIT, PATIENT HAS NOT HAD A FLU SHOT. WHEN QUESTIONED IF HE NEEDED ONE, HE REFUSED.
--- NOTE | 2019-09-29 11:44 | NUR ---
DC GIVEN TO PT, DC HOME PERSONAL CAR
--- NOTE | 2019-10-04 14:07 | EC ---
PATIENT:JONATHAN CUEVAS DATE OF SERVICE: 09/28/19 SEX: M MEDICAL RECORD: [id number] DATE OF : [birth year] LOCATION:D. D.212 AGE OF PATIENT: 38 ADMISSION DATE: 09/28/19 REFERRING PHYSICIAN: INTERPRETING PHYSICIAN: OLI NÚÑEZ MD ECHOCARDIOGRAM REPORT ECHO CHARGES 4 ECHO COMPLETE Date: 09/29/19 CLINICAL DIAGNOSIS: ICD,POSSIBLE DISLODGEMENT OF LEAD/PERFORMATION, HX AVR ECHOCARDIOGRAPHIC MEASUREMENTS (adult normal given) AC root (d.<3.7cm) 3.4 cm LV Septum d (<1.2 cm> 1.1 cm Valve Excursion 1.9 cm LV Septum (systole) 1.5 cm Left Atria (s.<4.0cm> 4.3 cm LVPW d(<1.2cm) 1.5 cm RV (d.<2.3cm) 4.9 cm LVPW (sytole) 1.7 cm LV diastole(<5.6CM) 6.5 cm MV E-F(>70mm/sec) cm LV systole 4.6 cm LVOT Diameter 2.3 cm MV exc.(>10mm) 1.9 cm Est.ejection fraction (50-75%) % DOPPLER: LVIT cm/sec A 49.0 cm/sec E 92.0 cm/sec LA 111 cm/sec RVSP 23 mmHg LVOT 167 cm/sec AOP1/2T m/s Asc. Ao cm/sec RVOT cm/sec RA cm/sec PA cm/sec AV Gradient Peak 11.18mmHg AV Mean 6.11 mmHg AV Area 2.6 cm MV Gradient Peak 4.37 mmHg MV Mean 1.54 mmHg MV Area cm COMMENTS: Chemistry Technical Officer: 2 DIANA BARAKAT Help Desk Administrator: 1 Dr. Núñez TAPE# PACS Pericardial Effusion N DATE OF SERVICE: FINDINGS: 1. Left ventricular chamber size is mildly dilated. Left ventricular systolic function is preserved at 50%. 2. Left atrium is enlarged at 4.3 cm. Right atrium and right ventricular chamber sizes are as well mildly dilated. 3. Valvular structures: Aortic valve is replaced with mechanical prosthesis with normal structure and function in this position. The remaining valvular structures have normal structure and motion. ECHOCARDIOGRAM REPORT [id number] JONATHAN CUEVAS 4. Doppler interrogation reveals no significant valvular insufficiency or stenosis. Pulmonary systolic pressure is normal, estimated at 19 mmHg. 5. No evidence of pericardial effusion or left ventricular thrombus. TRANSINT:[id number] Voice Confirmation ID: [id number] DOCUMENT ID: [id number] OLI NÚÑEZ MD at 1407 CC: [id number] DICTATION DATE: 09/29/19 1519 INSPECTION MACHINE TENDER: 09/29/19 1716 DIS IN 09/29/19 [place] [id number] [place] [id number]
--- NOTE | 2019-10-04 14:07 | HP ---
PATIENT: JONATHAN CUEVAS MEDICAL RECORD: [id number] ACCOUNT: [id number] LOCATION:D. D.2123 : 76 ADMISSION DATE: 09/28/19 PCP: MARIA ISABEL BASILIO DO HISTORY AND PHYSICAL EXAMINATION DIAGNOSES: 1. Cardiomyopathy. 2. Congestive heart failure, chronic systolic dysfunction. 3. Chest pain. 4. Status post pacemaker with lead revision. 5. Hypertension. 6. Valve replacement, aortic mechanical. 7. Coumadin anticoagulation. HISTORY OF PRESENT ILLNESS: This is a gentleman, who has been followed by the [facility]. He has a complex cardiac history. It appears that he was diagnosed with a cardiomyopathy and had a bicuspid aortic valve. Had an aortic valve replacement, has a mechanical aortic prosthesis. He is Coumadin anticoagulated because of this. Most recently, he underwent permanent pacemaker placement. He has had lead revision times 3, the last being 16th of this month. He presents with chest pain. The chest pain is centered around the scar from the pacemaker and the pacemaker site itself. The chest pain is atypical for ischemia. It is a sharp jabbing pin like pain that he has around the pacemaker site. It is definitely positional. He states at home that he had a fever as well. He has not been febrile here. His white count is not increased. He has no redness, swelling, or drainage around the pacemaker site and it is nontender. His troponins are normal. Potassium is mildly low. This is undergoing replacement. Otherwise, electrolytes and CBC are overall normal. PHYSICAL EXAMINATION: CONSTITUTIONAL/GENERAL APPEARANCE: Well nourished, well developed, appears stated age. EYES: Lids and conjunctivae noninjected. No discharge. No pallor. ENT: Lips within normal limit. No cyanosis. No pallor. NECK: Carotid arteries, bilateral normal upstroke. No bruits. No thrills. No jugular venous pressure or distention. CERVICAL LYMPH NODES: Nontender. Nonenlarged. THYROID: Not enlarged. No nodules. CARDIOVASCULAR: Precordial exam, nondisplaced. No heaves or pericardial thrills. Rate and rhythm, regular. Heart sounds, normal S1, normal S2. No S3, no gallop, no rub. Systolic murmur, not heard. Diastolic murmur, not heard. RESPIRATORY: Respiratory effort, unlabored. Normal curvature. No thoracic deformity. No chest wall tenderness. Percussion, resonant. Auscultation, clear. No wheezes, no rales, no rhonchi. ABDOMEN: Soft, nondistended, nontender. No abdominal pain, no vomiting and normal appetite. MUSCULOSKELETAL: No joint tenderness, normal gait, normal tone. SKIN: Warm and dry. OVERALL IMPRESSION: Chest pain, atypical for ischemia, most likely secondary to musculoskeletal from the mechanics of the pacemaker and scarring of the pacemaker site. The pacemaker has been interrogated. It has normal function. Chest x-ray shows the lead is in normal position. We will get an echocardiogram today to assess for any pericardial effusion. The echocardiogram is negative from the standpoint of pacemaker complications. We will discharge home, would HISTORY AND PHYSICAL [id number] JONATHAN CUEVAS have him follow up with the [facility]. TRANSINT:[id number] Voice Confirmation ID: [id number] DOCUMENT ID: [id number] OLI LOVELACE MD at 1407 CC: [id number] DICTATION DATE: 09/29/1945 SPECIAL WARFARE BOAT OPERATOR: 09/29/19 1048 DIS IN 09/29/19 [facility] [address] [place] [address]
--- NOTE | 2019-10-04 14:07 | DS ---
PATIENT:JONATHAN CHARLES :76 MEDICAL RECORD: [id number] DISCHARGE SUMMARY ADMISSION DATE: 09/28/19 DISCHARGE DATE: 09/29/19 HISTORY AND HOSPITAL COURSE: Mr. Charles presents with chest pain. Chest pain is musculoskeletal around the pacemaker site. He has had 3-lead revisions at the [facility] for lead dislodgement, last being the 16th. He has had a sharp jabbing pain around the site since this is scar tissue and/or the pacemaker itself. Echocardiogram revealed ejection fraction of 50%, normal functioning aortic valve. Normal pacemaker lead appearance. Chest x-ray had normal position of the pacemaker lead and pacemaker interrogation revealed normal function of the pacemaker, stable from a cardiac standpoint, follow up with the [facility]. TRANSINT:[id number] Voice Confirmation ID: [id number] DOCUMENT ID: [id number] OLI LOVELACE MD at 1407 CC: [id number] DICTATION DATE: 09/29/19 1015 PIG FARM MANAGER: 09/30/19 0629 DIS IN 09/29/19 [facility] [address] [place] [address]
== END 2019-09-29 11:45 | disposition home or self-care (01) ==
LOC: D.ER 18:32 → D.M2 22:24 → OBSVTIME 22:24 → D.M2 09-29 11:45
PROVIDERS: Emergency Medicine; Family Medicine; ADMIT Internal Medicine Interventional Cardiology; ATTEND Internal Medicine Interventional Cardiology
DX: R07.9 Chest pain, unspecified (principal); I42.9 Cardiomyopathy, unspecified; I11.0 Hypertensive heart disease with heart failure; I50.22 Chronic systolic (congestive) heart failure; Z79.01 Long term (current) use of anticoagulants; Z95.2 Presence of prosthetic heart valve; Z95.0 Presence of cardiac pacemaker

== ENCOUNTER → 2019-10-18 18:27 | Outpatient (CLI) | payer BC ==
[2019-09-29 09:42] VITALS: BMI 573.5
== END | disposition home or self-care (01) ==
LOC: D.LABREF 18:27
PROVIDERS: ATTEND Urology
DX: R82.90 Unspecified abnormal findings in urine (principal); R31.0 Gross hematuria

== ENCOUNTER 2019-11-14 06:00 | Day surgery (SDC) | payer BC ==
[2019-11-13 09:18] LABS: HEMATOCRIT 39.9 % (42.0-54.0); HEMOGLOBIN 13.2 g/dL (13.5-17.5); MCH 28.4 pg (26.0-34.0); MCHC 33.1 g/dL (31.0-37.0); MEAN PLATELET VOLUME 9.2 fL (7.4-10.4); RBC 4.64 10x6/uL (4.20-6.10); RDW 14.3 % (11.5-14.5); WBC 9.8 10x3/uL (4.8-10.8)
[2019-11-13 09:32] LABS: CALC OSMOLALITY 280 mosm/kg (275-300); CALCIUM 8.6 mg/dL (8.5-10.1); CARBON DIOXIDE 29.3 mmol/L (21.0-32.0); CHLORIDE - SERUM 104 mmol/L (98-107); CREATININE - SERUM 0.8 mg/dL (0.6-1.3); GLUCOSE 156 mg/dL (74-106); POTASSIUM - SERUM 3.8 mmol/L (3.5-5.1); SODIUM 139 mmol/L (136-145); UREA NITROGEN 13 mg/dL (7-18); eGFR NON AFRICAN AMERICAN > 90 mL/min (90-120)
[2019-11-13 09:37] LABS: INR 1.12 (0.85-1.17); PROTIME 13.9 SECONDS (11.6-15.0)
[~2019-11-14] VITALS: Ht 170.2 cm; Wt 171.9 kg
[2019-11-14 06:56] VITALS: BP 103/48; Ht 170.2 cm; Wt 171.9 kg
[2019-11-14] MEDS ORDERED: HYDROCODON-ACE1 EAC7 PO (07:04)
--- NOTE | 2019-11-14 09:06 | NUR ---
0905 DR. DIDIER COOK. PT AROUSING. ADA FL DIET SERVED.
--- NOTE | 2019-11-14 10:49 | OP ---
PATIENT NAME: JONATHAN CUEVAS MEDICAL RECORD: [id number] :76 LOCATION:D.OPS ADMISSION DATE: SURGEON: JIM VELÁSQUEZ MD DATE OF OPERATION: 11/14/2019 SURGEON: Jim Velásquez MD ANESTHESIA: TIVA by Anali Samson CRNA. DIAGNOSIS: Hematuria. PROCEDURE: Cystoscopy. FINDINGS: Nonobstructive prostate. No bladder tumors. Single ureteral orifices bilaterally. Inflamed bladder. BLOOD LOSS: None. CLINICAL HISTORY: This is a 38-year-old male who has had a complicated medical history. He has had heart surgery and he is on anticoagulation. He has had a right renal cell carcinoma, which was treated with cryoablation. He has had episodes of hematuria. He comes today for cystoscopy. He was given Levaquin IV recreation programmer to the OR. DESCRIPTION OF PROCEDURE: The patient was given IV sedation. He was placed in the lithotomy position, prepped and draped. A 17-St Lucian cystoscope with 30-degree lens was used for visualization. No penile, urethral strictures or tumors were seen. Going into the prostate, the prostate was not obstructive. Going into the bladder, there were single ureteral orifices on each side. No bladder tumors were seen. The bladder is diffusely inflamed. I suspect that the hematuria is purely due to the anticoagulation. The bladder was emptied through the scope sheath and then the scope was removed. I will see the patient in followup on a p.r.n. basis. TRANSINT:[id number] Voice Confirmation ID: [id number] DOCUMENT ID: [id number] JIM VELÁSQUEZ MD at 1049 CC: [id number] DICTATION DATE: 11/14/19 0859 SPRING FITTER: 11/14/19 1044 [facility] 11/14/19 [place] [address]
== END 2019-11-14 09:45 | disposition home or self-care (01) ==
LOC: D.OPS 06:00 → D.PAN 07:30 → D.OPS 07:30 → D.PAN 07:55 → D.OPS 09:45
PROVIDERS: Anesthesiology; ATTEND Urology
DX: R31.0 Gross hematuria (principal); I10 Essential (primary) hypertension; C64.9 Malignant neoplasm of unspecified kidney, except renal pelvis; E66.01 Morbid (severe) obesity due to excess calories; Z68.41 Body mass index [BMI] 40.0-44.9, adult

== ENCOUNTER 2021-01-28 05:41 | Emergency (ER) | payer BC ==
[~2021-01-28] VITALS: Ht 170.2 cm; Wt 150.0 kg
[2021-01-28 05:50] VITALS: Ht 170.2 cm; Wt 150.0 kg
[2021-01-28 06:28] LABS: BASOPHILS 0.1 % (0-2); EOSINOPHILS 3.4 % (0-7); HEMATOCRIT 40.2 % (42.0-54.0); HEMOGLOBIN 13.3 g/dL (13.5-17.5); IMMATURE GRANULOCYTES 0.3 % (0-5); LYMPHOCYTE ABS# 2.14 10x3/uL (1.32-3.57); LYMPHOCYTES 31.8 % (15-50); MCH 28.5 pg (26.0-34.0); MCHC 33.1 g/dL (31.0-37.0); MCV 86.3 fL (80.0-100.0); MEAN PLATELET VOLUME 9.7 fL (7.4-10.4); MONOCYTES 8.5 % (2-11); NEUTROPHIL ABS# 3.77 10x3/uL (1.78-5.38); NEUTROPHILS 55.9 % (40-80); PLATELET COUNT 216 10x3/uL (130-400); RBC 4.66 10x6/uL (4.20-6.10); RDW 13.7 % (11.5-14.5); WBC 6.7 10x3/uL (4.8-10.8)
[2021-01-28 06:32] LABS: CALC OSMOLALITY 276 mosm/kg (275-300); CALCIUM 9.1 mg/dL (8.5-10.1); CARBON DIOXIDE 27.9 mmol/L (21.0-32.0); CHLORIDE - SERUM 103 mmol/L (98-107); CREATININE - SERUM 0.7 mg/dL (0.6-1.3); GLUCOSE 133 mg/dL (74-106); POTASSIUM - SERUM 3.8 mmol/L (3.5-5.1); SODIUM 137 mmol/L (136-145); UREA NITROGEN 16 mg/dL (7-18); eGFR NON AFRICAN AMERICAN > 90 mL/min (90-120)
[2021-01-28 06:35] LABS: INR 2.36 (0.85-1.17)
[2021-01-28 06:45] LABS: ALBUMIN 3.3 g/dL (3.4-5.0); ALKALINE PHOSPHATASE 53 U/L (30-120); ALT (SGPT) 112 U/L (10-68); PRO BNP 36 pg/mL (0-125); PROTEIN - SERUM 6.7 g/dL (6.4-8.2)
[2021-01-28 09:41] VITALS: BP 114/44
== END 2021-01-28 09:40 | disposition home or self-care (01) ==
LOC: D.ER 05:41
PROVIDERS: Family Medicine
DX: I83.892 Varicose veins of left lower extremity with other complications (principal); Z79.01 Long term (current) use of anticoagulants; I50.9 Heart failure, unspecified; E11.9 Type 2 diabetes mellitus without complications; I11.0 Hypertensive heart disease with heart failure; E66.01 Morbid (severe) obesity due to excess calories; Z68.43 Body mass index [BMI] 50.0-59.9, adult

== ENCOUNTER 2021-02-24 06:10 | Day surgery (SDC) | payer BC ==
[2021-02-21 16:16] LABS: BASOPHILS 0.2 % (0-2); EOSINOPHILS 1.7 % (0-7); HEMATOCRIT 42.5 % (42.0-54.0); HEMOGLOBIN 14.1 g/dL (13.5-17.5); IMMATURE GRANULOCYTES 0.2 % (0-5); LYMPHOCYTE ABS# 3.25 10x3/uL (1.32-3.57); LYMPHOCYTES 35.4 % (15-50); MCH 28.6 pg (26.0-34.0); MCHC 33.2 g/dL (31.0-37.0); MCV 86.2 fL (80.0-100.0); MEAN PLATELET VOLUME 9.9 fL (7.4-10.4); MONOCYTES 6.4 % (2-11); NEUTROPHIL ABS# 5.14 10x3/uL (1.78-5.38); NEUTROPHILS 56.1 % (40-80); PLATELET COUNT 225 10x3/uL (130-400); RBC 4.93 10x6/uL (4.20-6.10); RDW 14.2 % (11.5-14.5); WBC 9.2 10x3/uL (4.8-10.8)
[2021-02-21 16:24] LABS: INR 3.13 (0.85-1.17); PROTIME 29.9 SECONDS (11.6-15.0)
[2021-02-21 16:25] LABS: APTT 57.5 SECONDS (22.8-39.4)
[2021-02-21 16:32] LABS: CALC OSMOLALITY 281 mosm/kg (275-300); CALCIUM 8.5 mg/dL (8.5-10.1); CARBON DIOXIDE 28.3 mmol/L (21.0-32.0); CHLORIDE - SERUM 104 mmol/L (98-107); CREATININE - SERUM 1.1 mg/dL (0.6-1.3); GLUCOSE 111 mg/dL (74-106); POTASSIUM - SERUM 3.8 mmol/L (3.5-5.1); SODIUM 140 mmol/L (136-145); UREA NITROGEN 18 mg/dL (7-18); eGFR NON AFRICAN AMERICAN 78 mL/min (90-120)
[~2021-02-24] VITALS: Ht 170.2 cm; Wt 155.6 kg
[2021-02-24 07:14] VITALS: BP 113/56; Ht 170.2 cm; Wt 155.6 kg
[2021-02-24 08:01] LABS: INR 1.05 (0.85-1.17); PROTIME 12.7 SECONDS (11.6-15.0)
[2021-02-24] MEDS ORDERED: TYLENOL W/CODEI1 TAB PO (09:36)
--- NOTE | 2021-02-24 13:40 | NUR ---
AT [address] KAHN RE: PTS CONCERNS ABOUT TC3 NOT BEING ADEQUATE PAIN CONTROL BECAUSE HE TAKES NORCO. RX'D WITH NORCO. 1235 PT STATES PAIN 4/10 AND FEELS READY TO GO HOME. IV D/C'D WITH CANNULA INTACT, PRESSURE HELD AND DRSG PLACED. DRSG CDI. DISCHARGE INSTRUCTIONS GIVEN AND PT VERBALIZED AND UNDERSTANDING.
== END 2021-02-24 12:35 | disposition home or self-care (01) ==
LOC: D.OPS 06:10
PROVIDERS: Anesthesiology; ATTEND Surgery
DX: I83.892 Varicose veins of left lower extremity with other complications (principal); I87.2 Venous insufficiency (chronic) (peripheral); I10 Essential (primary) hypertension; E11.9 Type 2 diabetes mellitus without complications; I50.9 Heart failure, unspecified; I83.029 Varicose veins of left lower extremity with ulcer of unspecified site; E66.01 Morbid (severe) obesity due to excess calories